=== PATIENT | female | born 1995 | race Caucasian/White ===

== ENCOUNTER 2018-11-22 22:07 | Emergency (ER) | payer OTHER ==
[2018-11-22 22:15] VITALS: BP 143/100
--- NOTE | 2018-11-22 22:24 | ER Report ---
History and Physical Time Seen By MD: 22:23 Hx. 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 At 7:30. It's now 10:30. She has severe right foreign body sensation in her eye. She does not wear contacts or glasses. She notes increased pain with blinking. Reviewed Nurses Notes: Yes Old Medical Records Reviewed: Yes Constitutional Vital Sign - Last 24 Hours 11/22/18 22:15 Temp 98.2 Pulse 79 Resp 17 B/P (MAP) 143/100 Pulse Ox 96 O2 Delivery Room Air Physical Exam General appearance: Alert no distress. HEENT:, Examination of the right eye after a Elijah lens was irrigated with 1000 mL. Proparacaine control the pain. There was some minimal corneal abrasion over the central portion of the cornea. Respiratory: Chest is non tender, lungs are clear to auscultation. Cardiac: Regular rate and rhythm DIFFERENTIAL DIAGNOSIS: After history and physical exam differential diagnosis was considered for eye pain, conjunctivitis, corneal abrasion, chemical ramirez, foreign body Medical Decision Making ED Course/Re-evaluation ED Course Patient was admitted to an examination room. H&P was done. The differential diagnosis was considered. On clinical examination. Patient has corneal abrasions to the central portion of her cornea. Appear quite superficial. Patient was treated with Tobrex drops. She is to use 1 drop 3 times a day in her eye. She is advised to follow-up with Dr. Alfaro ophthalmology if unimproved in 2 days. Patient advised to take ibuprofen 200 mg 3 tablets 3 times a day. Decision to Disposition Date: Nov 22, 2018 Decision to Disposition Time: 22:49 Depart Departure Latest Vital Signs Vital Signs Date Time Temp Pulse Resp B/P (MAP) Pulse Ox O2 Delivery O2 Flow Rate FiO2 11/22/18 22:15 98.2 79 17 143/100 96 Room Air Impression: Primary Impression: Injury of conjunctiva and corneal abrasion of right eye without foreign body Condition: Improved Disposition: HOME OR SELF-CARE Referrals: SHANEL ALFARO MD Patient Instructions: Corneal Abrasion (ED) Additional Instructions: Use Tobrex drops 1 drop in the eye 3 times a day for 3-5 days Use proparacaine drops for numbing be cautious not to rub her eye is you can cause more scratches Use ibuprofen 200 mg 3 tablets 3 times a day Follow-up with Dr. Alfaro ophthalmology if unimproved in 2 days Problem Qualifiers Primary Impression: Injury of conjunctiva and corneal abrasion of right eye without foreign body Encounter type: initial encounter Qualified Codes: S05.01XA - Injury of conjunctiva and corneal abrasion without foreign body, right eye, initial encounter ALYSSA CHAUDHARI DO Nov 22, 2018 22:24
[2018-11-22] MEDS ORDERED: PROPARACAINE 0.5% OP 15ML BTL OD ONE (22:30)
[2018-11-22] MEDS ORDERED: TOBRAMYCIN/DEX OP SUSP 2.5 ML OD ONE (22:30)
[2018-11-22] MEDS ORDERED: FLUORESCEIN SOD 1 MG 1 EA STRP OD ONE (22:30)
== END 2018-11-22 22:59 | disposition home or self-care (01) ==
LOC: ER 22:27
DX: S05.01XA Injury of conjunctiva and corneal abrasion without foreign body, right eye, initial encounter (principal)
CPT/HCPCS: 99283